=== PATIENT | female | born 1965 | race Caucasian/White ===

== ENCOUNTER 2017-07-31 10:41 | Emergency (ER) | payer BC ==
[2017-07-31 11:26] VITALS: BP 155/65
--- NOTE | 2017-07-31 12:04 | UC ---
Respiratory Complaint HPI - HPI Summary HPI Summary: Pt presents with 1m hx of dyspnea, non productive cough, and some SOB. She denies any medical history, but did start smoking again recently. She has been taking OTC dayquill/nyquill with mild relief. She does not take any medications. She does get a headache periodically, but associates this with increased coughing. Feels feverish and gets hot flashes from time to time. Denies chest pain, N/V/D/C, or recent travel. - History of Current Complaint Hx Obtained From: Patient ?: No Onset/Duration: Gradual Onset Severity Initially: Mild Severity Currently: Moderate - Risk Factors Pulmonary Embolism Risk Factors: Smoking <Nemesio Sosa - Last Filed: 07/31/17 15:16> <Saray Cano - Last Filed: 07/31/17 19:07> - History of Current Complaint Chief Complaint: UCRespiratory Stated Complaint: URI Time Seen by Provider: 07/31/17 12:04 - Allergies/Home Medications Allergies/Adverse Reactions: Allergies Allergy/AdvReac Type Severity Reaction Status Date / Time No Known Allergies Allergy Verified 09/16/16 16:14 PMH/Surg Hx/FS Hx/Imm Hx Previously Healthy: Yes - Surgical History Surgical History: Yes Surgery Procedure, Year, and Place: BILAT STEPENECTOMY. LT SIDE=1 YR AGO RT SIDE 3 TRS AGO - Family History Known Family History: Positive: None - Social History Occupation: Employed Full-time Lives: With Family Alcohol Use: Weekly Alcohol Amount: 2-3 drinks/ week Substance Use Type: None Smoking Status (MU): Current Some Day Smoker Type: Cigarettes Length of Time of Smoking/Using Tobacco: 15-20 years Have You Smoked in the Last Year: Yes Cessation Counseling: Counseled 3+Min - 10 Min <Nemesio Sosa - Last Filed: 07/31/17 15:16> Review of Systems Constitutional: Fever Skin: Negative Eyes: Negative ENT: Negative Respiratory: Shortness Of Breath, Cough Cardiovascular: Negative Gastrointestinal: Negative Neurovascular: Negative Neurological: Negative Psychological: Negative All Other Systems Reviewed And Are Negative: Yes <Nemesio Sosa - Last Filed: 07/31/17 15:16> Physical Exam Triage Information Reviewed: Yes Appearance: Well-Appearing, Well-Nourished Vital Signs: Initial Vital Signs Temp 98.3 F 07/31/17 11:19 Pulse 70 07/31/17 11:19 Resp 18 07/31/17 11:19 BP 155/65 07/31/17 11:19 Pulse Ox 99 07/31/17 11:19 Vital Signs Reviewed: Yes Eyes: Positive: Conjunctiva Clear ENT: Positive: Hearing grossly normal, Pharynx normal, TMs normal, Uvula midline. Negative: Pharyngeal erythema, Nasal congestion, Nasal drainage, TM bulging, TM dull, TM red, Tonsillar swelling, Tonsillar exudate, Sinus tenderness Neck: Positive: Supple, Nontender, No Lymphadenopathy Respiratory: Positive: Chest non-tender, No respiratory distress, No accessory muscle use, Decreased breath sounds - Throughout, Wheezing - throughout Cardiovascular: Positive: RRR, No Murmur, Pulses Normal Neurological: Positive: Alert Psychological: Positive: Age Appropriate Behavior Skin: Negative: rashes <Nemesio Sosa - Last Filed: 07/31/17 15:16> Vital Signs: Initial Vital Signs Temp 98.3 F 07/31/17 11:19 Pulse 70 07/31/17 11:19 Resp 18 07/31/17 11:19 BP 155/65 07/31/17 11:19 Pulse Ox 99 07/31/17 11:19 <Saray Cano - Last Filed: 07/31/17 19:07> Diagnostic Evaluation - Laboratory O2 Sat by Pulse Oximetry: 99 <Nemesio Sosa - Last Filed: 07/31/17 15:16> Respiratory Course/Dx - Course Course Of Treatment: EKG - ?left atrial enlargement. Negative for acute process. CXR - Hyperinflation cosistent with COPD. No acute disease. Rx for Z- jr and albuterol - pt says she will likely not use the inhaler as she hates taking medications and believes the z-jr is all she needs. Your blood pressure was high at today's visit - please see your PCP within 4 weeks for recheck and re-evaluation. - Differential Dx/Diagnosis Differential Diagnosis/HQI/PQRI: Asthma, Bronchitis, Lower Resp Infection, Pneumothorax, Pulmonary Embolism, Sinusitis Provider Diagnoses: copd exacerbation <Nemesio Sosa - Last Filed: 07/31/17 15:16> Discharge <Nemesio Sosa - Last Filed: 07/31/17 15:16> <Saray Cano - Last Filed: 07/31/17 19:07> - Discharge Plan Condition: Stable Disposition: HOME Prescriptions: Albuterol HFA INHALER* [Ventolin HFA Inhaler*] 1 - 2 puff INH Q6H PRN #1 mdi PRN Reason: Cough Azithromyxin JR (NF) [Z-Jr (Zithromax) 250 mg tabs #6] 2 tab PO .TODAY, THEN 1 DAILY #6 tab Fluconazole 100 MG TAB* [Diflucan 100 MG TAB*] 100 mg PO DAILY #1 tab Patient Education Materials: Acute Bronchitis (ED) Forms: *Work Release Referrals: [facility] [Outside] - As Soon As Possible Additional Instructions: 1) Z-jr take as directed 2) Albuterol inhaler 2 puffs every 6 hours as needed for shortness of breath or cough 3) Diflucan when/if vaginal yeast symptoms occur 4) If you develop new fever, SOB, chest pain, new or worsening symptoms - please call our office or go to ED. Your blood pressure was high at today's visit - please see your PCP within 4 weeks for recheck and re-evaluation. Attestation Statement User Type: Provider - I was available for consult. This patient was seen by the [facility]. The patient was not presented to, seen by, or examined by me. -Ben <Saray Cano - Last Filed: 07/31/17 19:07>
--- NOTE | 2017-07-31 12:40 | RAD ---
HISTORY: Shortness of breath COMPARISONS: May 19, 2009 VIEWS: 4: Frontal dual-energy and lateral views of the chest. FINDINGS: CARDIOMEDIASTINAL SILHOUETTE: The cardiomediastinal silhouette is normal. ANJUM: The anjum are normal. PLEURA: The costophrenic angles are sharp. No pleural abnormalities are noted. LUNG PARENCHYMA: There is hyperinflation with flattening of the diaphragm and expansion of the AP diameter of the chest. ABDOMEN: The upper abdomen is clear. There is no subphrenic gas. BONES AND SOFT TISSUES: No bone or soft tissue abnormalities are noted. OTHER: None. IMPRESSION: HYPERINFLATION, CONSISTENT WITH COPD. NO ACTIVE CARDIOPULMONARY DISEASE.
== END 2017-07-31 12:58 | disposition home or self-care (01) ==
LOC: UCEAST 10:41
DX: J44.1 Chronic obstructive pulmonary disease with (acute) exacerbation (principal); R94.31 Abnormal electrocardiogram [ECG] [EKG]; F17.210 Nicotine dependence, cigarettes, uncomplicated
CPT/HCPCS: 71020; 93005; 99212; G0463

== ENCOUNTER 2018-11-04 05:11 | Emergency (ER) | payer BC ==
[2018-11-04] MEDS ORDERED: HYDROcodone/ACETAMIN 5-325 MG* 1 TAB PO ONE (05:45)
--- NOTE | 2018-11-04 06:07 | ED ---
Upper Extremity Pain - HPI Summary HPI Summary: Patient is a 53-year-old female presenting to the ED with right shoulder pain after fall last evening. She states she slipped on the ice and fell directly onto her right shoulder. She endorses swelling to the right shoulder, denies any pain to the elbow. Denies any pain around the neck. Denies any head injury. Pain is currently rated an 8/10, constant and throbbing. Denies any numbness or tingling, color or temperature changes to the ipsilateral arm. - History of Current Complaint Chief Complaint: EDExtremityUpper Stated Complaint: RIGHT SHOULDER PAIN Time Seen by Provider: 11/04/18 05:26 Hx Obtained From: Patient Mechanism Of Injury: Blunt Trauma Onset/Duration: Started Hours Ago Timing: Constant Severity Initially: Mild Severity Currently: Mild Character: Aching Aggravating Factor(s): Nothing Alleviating Factor(s): Nothing Associated Signs & Symptoms: Positive: Swelling. Negative: Redness, Bruising, Weakness, Numbness/Tingling - Risk Factors Non-Orthopedic Risk Factor: Negative DVT Risk Factors: Negative Septic Arthritis Risk Factor: Negative Compartment Syndrome Risk Factors: Pain - Allergies/Home Medications Allergies/Adverse Reactions: Allergies Allergy/AdvReac Type Severity Reaction Status Date / Time No Known Allergies Allergy Verified 09/16/16 16:14 PMH/Surg Hx/FS Hx/Imm Hx Previously Healthy: Yes Respiratory History: Denies: Hx Asthma - Surgical History Surgery Procedure, Year, and Place: BILAT STEPENECTOMY. LT SIDE=1 YR AGO RT SIDE 3 TRS AGO Infectious Disease History: No Infectious Disease History: Reports: History Other Infectious Disease - lyme Denies: Hx Clostridium Difficile, Hx Hepatitis, Hx Human Immunodeficiency Virus (HIV), Hx of Known/Suspected MRSA, Hx Shingles, Hx Tuberculosis, Hx Known/ Suspected VRE, Hx Known/Suspected VRSA, Traveled Outside the [place] in Last 30 Days - Family History Known Family History: Positive: None - Social History Occupation: Employed Full-time Lives: With Family Alcohol Use: Weekly Alcohol Amount: 2-3 drinks/ week Hx Substance Use: No Substance Use Type: Reports: None Hx Tobacco Use: Yes Smoking Status (MU): Current Some Day Smoker Type: Cigarettes Length of Time of Smoking/Using Tobacco: 15-20 years Have You Smoked in the Last Year: Yes Review of Systems Constitutional: Negative Negative: Fever, Chills, Fatigue, Skin Diaphoresis Negative: Palpitations, Chest Pain Negative: Shortness Of Breath, Cough Genitourinary: Negative Positive: no symptoms reported, see HPI Positive: Arthralgia, Other - swelling to the right shoulder Skin: Negative Neurological: Negative All Other Systems Reviewed And Are Negative: Yes Physical Exam Triage Information Reviewed: Yes Vital Signs On Initial Exam: Initial Vitals Temp Pulse Resp BP Pulse Ox 98.2 F 66 20 149/87 98 11/04/18 05:12 11/04/18 05:12 11/04/18 05:12 11/04/18 05:12 11/04/18 05:12 Vital Signs Reviewed: Yes Appearance: Positive: Well-Appearing, Well-Nourished Skin: Positive: Warm, Skin Color Reflects Adequate Perfusion Head/Face: Positive: Normal Head/Face Inspection Eyes: Positive: EOMI, SEVEN, Conjunctiva Clear Neck: Positive: Supple, No Lymphadenopathy Respiratory/Lung Sounds: Positive: Clear to Auscultation, Breath Sounds Present Cardiovascular: Positive: RRR, Pulses are Symmetrical in both Upper and Lower Extremities Musculoskeletal: Positive: Pain @ - Right shoulder Neurological: Positive: Sensory/Motor Intact, Alert, Oriented to Person Place, Time, Speech Normal Psychiatric: Positive: Affect/Mood Appropriate AVPU Assessment: Alert Diagnostics - Vital Signs Vital Signs Temp Pulse Resp BP Pulse Ox 11/04/18 05:12 98.2 F 66 20 149/87 98 - Laboratory Lab Statement: Any lab studies that have been ordered have been reviewed, and results considered in the medical decision making process. Course/Dx - Course Course Of Treatment: Neurovascular exam intact. There is significant amount of swelling to the right shoulder without ecchymosis. X-ray obtained which shows a proximal humerus fracture. Sling applied. She is given hydrocodone and rx for pain management. Encouraged follow up with orthopedics early next week. Patient OK for discharge at this time. They want - Diagnoses Differential Diagnosis/HQI/PQRI: Positive: Fracture (Closed) Provider Diagnoses: Proximal humeral fracture Discharge - Sign-Out/Discharge Documenting (check all that apply): Patient Departure Patient Received Moderate/Deep Sedation with Procedure: No - Discharge Plan Condition: Stable Disposition: HOME Prescriptions: Ibuprofen 600 mg PO TID PRN #30 tablet MDD 3 PRN Reason: Pain oxyCODONE/Acetamin 10/325(NF) [Percocet 10/325 (NF)] 1 tab PO QID #16 tab MDD 4 Patient Education Materials: Arm Fracture in Adults (ED) Referrals: Haider Wolf MD [Medical Doctor] - Joann Gage MD [Medical Doctor] - Additional Instructions: Take 1 tab up to four times daily for pain Ibuprofen 600mg three times daily Please see Dr. Wolf in the office next week Call tomorrow morning to make an appt - Billing Disposition and Condition Condition: STABLE Disposition: Home
[2018-11-04 06:30] VITALS: BP 131/83
== END 2018-11-04 06:29 | disposition home or self-care (01) ==
LOC: ED 05:11
DX: S42.201A Unspecified fracture of upper end of right humerus, initial encounter for closed fracture (principal); W00.0XXA Fall on same level due to ice and snow, initial encounter; F17.210 Nicotine dependence, cigarettes, uncomplicated
CPT/HCPCS: 99282

== ENCOUNTER 2019-05-27 15:21 | Emergency (ER) | payer BC ==
[2019-05-27 15:39] VITALS: BP 129/77
--- NOTE | 2019-05-27 16:06 | UC ---
Throat Pain/Nasal Mychal HPI - HPI Summary HPI Summary: Patient is a 54yo female presenting with sinus pain and pressure since March. She states the pressure has been worsening over the past week. Notes bilateral maxillary sinus pressure. Notes right ear blockage and decreased hearing. Denies drainage from ear. Denies left ear symptoms. Notes congestion and post nasal drip. Denies sore throat and cough. She says she gets recurrent sinus and respiratory infections. Notes occasional wheezing. Denies nausea, vomiting, and diarrhea. Patient has tried nasal saline without relief. She notes having a stapenectomy performed in the right ear a couple years ago. - History of Current Complaint Chief Complaint: UCRespiratory Stated Complaint: SINUS COMPLAINT Time Seen by Provider: 05/27/19 15:39 Hx Obtained From: Patient Onset/Duration: Gradual Onset, Lasting Weeks Pain Intensity: 7 Pain Scale Used: 0-10 Numeric Associated Signs & Symptoms: Positive: Sinus Discomfort Related History: Seasonal Allergies - Allergies/Home Medications Allergies/Adverse Reactions: Allergies Allergy/AdvReac Type Severity Reaction Status Date / Time grass pollen Allergy Congestion Verified 05/27/19 15:33 Home Medications: Home Medications Ibuprofen 400 mg PO TID PRN MDD 3 05/27/19 [History] PMH/Surg Hx/FS Hx/Imm Hx - Surgical History Surgical History: Yes Surgery Procedure, Year, and Place: BILAT STEPENECTOMY. LT SIDE=1 YR AGO RT SIDE 3 TRS AGO - Family History Known Family History: Positive: None, Non-Contributory - Social History Alcohol Use: Daily Alcohol Amount: 2-3 drinks/ week Substance Use Type: None Substance Use Comment - Amount & Last Used: occasionally Smoking Status (MU): Former Smoker Type: Cigarettes Length of Time of Smoking/Using Tobacco: 15-20 years Have You Smoked in the Last Year: Yes Review of Systems All Other Systems Reviewed And Are Negative: No Constitutional: Positive: Fever, Fatigue. Negative: Chills Eyes: Positive: Other - intermittent watery eyes ENT: Positive: Ear Ache - right sided ear pressure and loss of hearing, Sinus Congestion, Sinus Pain/Tenderness Respiratory: Positive: Other - patient notes occasional wheezing Cardiovascular: Positive: Negative Gastrointestinal: Positive: Negative Genitourinary: Positive: Negative Physical Exam Triage Information Reviewed: Yes Appearance: Well-Appearing, No Pain Distress, Well-Nourished Vital Signs: Initial Vital Signs Temp 99.0 F 05/27/19 15:34 Pulse 81 05/27/19 15:34 Resp 18 05/27/19 15:34 BP 129/77 05/27/19 15:34 Pulse Ox 99 05/27/19 15:34 Vital Signs Reviewed: Yes Eyes: Positive: Conjunctiva Clear ENT: Positive: Pharynx normal, TMs normal - Right TM initially unable to be visualized until cerumen removed with curette. Scarring noted on the right TM from past procedures. TMs otherwise normal., Sinus tenderness - bilateral, Other. Negative: Pharyngeal erythema, Nasal drainage, TM bulging Neck: Positive: Supple, Nontender, No Lymphadenopathy Respiratory Exam: Normal Cardiovascular Exam: Normal Throat Pain/Nasal Course/Dx - Course Course Of Treatment: Patient instructed to take Augmentin as directed for treatment of sinusitis. Patient told she can continue nasal saline and OTC analgesics as directed. She requested prophylactic diflucan which she can take if a yeast infection occurs. She was instructed to follow up with her primary care physician if symptoms persist or worsen. Patient voiced understanding and agreed to treatment plan. - Differential Dx/Diagnosis Provider Diagnosis: Sinusitis Discharge ED - Sign-Out/Discharge Documenting (check all that apply): Patient Departure All imaging exams completed and their final reports reviewed: No Studies - Discharge Plan Condition: Stable Disposition: HOME Prescriptions: Amoxicillin/Clavulanate TAB* [Augmentin TAB 875*] 875 mg PO BID 7 Days #14 tab Fluconazole 150 MG TAB* [Diflucan 150 MG TAB*] 150 mg PO ONCE PRN #1 tablet PRN Reason: Itching Patient Education Materials: Sinusitis (ED) Referrals: [facility] [place] [facility] REFERRAL [Outside] Additional Instructions: Take Augmentin as directed for treatment of sinusitis. You may also continue use of nasal saline and OTC pain medications. Follow up with primary care physician if symptoms worsen or do not resolve. - Billing Disposition and Condition Condition: STABLE Disposition: Home
== END 2019-05-27 16:20 | disposition home or self-care (01) ==
LOC: UCEAST 15:21
DX: J32.9 Chronic sinusitis, unspecified (principal); Z87.891 Personal history of nicotine dependence
CPT/HCPCS: 99212; G0463

== ENCOUNTER 2019-10-01 13:08 | Emergency (ER) | payer BC ==
--- OUTSIDE RECORDS SUMMARY | 2019-10-01 13:17 | XMS REPORT | Continuity of Care Document ---
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 Problems Description No Information Available Social History Type Date Description Comments Sex Unknown Tobacco Use Start: Unknown Patient is a current smoker, smokes every day Smoking Status Reviewed: 08/29/19 Patient is a current smoker, smokes every day Allergies, Adverse Reactions, Alerts Description No Known Drug Allergies Medications Description No Active Medications Immunizations Description No Information Available Vital Signs Date Vital Result Comment 08/29/2019 4:08pm Height 61 inches 5'1" Weight 132.50 lb Heart Rate 66 /min BP Systolic 130 mmHg BP Diastolic 90 mmHg Respiratory Rate 14 /min Body Temperature 97.5 F Pain Level 1 BMI (Body Mass Index) 25.0 kg/m2 04/15/2019 1:10pm Height 62 inches 5'2" Weight 110.00 lb Heart Rate 78 /min BP Systolic 132 mmHg BP Diastolic 78 mmHg Respiratory Rate 12 /min Pain Level 0 BMI (Body Mass Index) 20.1 kg/m2 Results Description No Information Available Procedures Description No Information Available Medical Devices Description No Information Available Encounters Type Date Location Provider Dx Diagnosis Office Visit 04/15/2019 [facility] Haider Jade S42.221D 2-part disp fx 1:15p at Devin Wolf MD of [facility], 7thD Assessments Date Code Description Provider 08/29/2019 S42.221D 2-part displaced fracture of surgical neck Haider Wolf MD of right humerus, 04/15/2019 S42.221D 2-part displaced fracture of surgical neck Haider Wolf MD of right humerus, Plan of Treatment 08/29/2019 - Haider Wolf, MDS42.221D 2-part displaced fracture of surgical neck of right humerus,Follow up:Follow up: as needed Functional Status Description No Information Available Mental Status Description No Information Available Referrals Description No Information Available
[2019-10-01 13:22] VITALS: BP 159/96
--- NOTE | 2019-10-01 15:07 | UC ---
FLU HPI - HPI Summary HPI Summary: Bianka is a 48 yo female who presents to urgent care reporting what sounds like flulike symptoms starting last week. Patient states she had full body aches tactile temperatures nausea head congestion and a headache. Patient states she took [place] flu and some NyQuil but seem to help. Patient states she missed work Monday and again this week Monday. Patient states she starting to feel like she's getting better. Patient states she is just very tired without much appetite. Patient states she has not felt a fever in 24 hours. Patient with slight cough status improving. No nausea or vomiting. No rash. Patient state she has mild sinus congestion but that has also improved. Patient here to get a note for work as well as just to get her " wants checked. "Patient's medications is entered in the EMR by triage is reviewed this visit. 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 Patient did not flu vaccine this year. - History of Current Complaint Chief Complaint: UCRespiratory Stated Complaint: COUGH FEVER CHILLS Time Seen by Provider: 10/01/19 14:41 Hx Obtained From: Patient ?: No Onset/Duration: Gradual Onset Severity Currently: Moderate Severity Initially: Mild Pain Intensity: 4 Pain Scale Used: 0-10 Numeric - Allergy/Home Medications Allergies/Adverse Reactions: Allergies Allergy/AdvReac Type Severity Reaction Status Date / Time cucumber Allergy Intermediate Headache Verified 10/01/19 13:21 grass pollen Allergy Intermediate Congestion Verified 10/01/19 13:21 Perfume Allergy Intermediate Headache Verified 10/01/19 13:21 Home Medications: Home Medications NK [No Home Medications Reported] 10/01/19 [History Confirmed 10/01/19] PMH/Surg Hx/FS Hx/Imm Hx Previously Healthy: Yes - Surgical History Surgical History: Yes Surgery Procedure, Year, and Place: stapedectomy- STEPHEN 04/14/19 @[facility]- [place]-MR CONDITIONAL FOR 1.5T (PER DOCUMENT-W/O COMPLICATIONS). 08/17/15- LT STAPEDECTOMY-REMOVED PREV IMPLANT AND NEW IMPLANT-STAPES- [facility]- GYR[facility]- MR CONDITIONAL FOR 1.5T @ [facility] IN [place] - Family History Known Family History: Positive: Non-Contributory - Social History Occupation: Employed Full-time Lives: Alone Alcohol Use: Daily Alcohol Amount: 2-3 drinks/ week Substance Use Type: None Substance Use Comment - Amount & Last Used: occasionally Smoking Status (MU): Former Smoker Type: Cigarettes Length of Time of Smoking/Using Tobacco: 15-20 years Have You Smoked in the Last Year: Yes Review of Systems All Other Systems Reviewed And Are Negative: Yes Constitutional: Positive: Fever - resolved ENT: Positive: Sore Throat, Nasal Discharge, Sinus Congestion, Sinus Pain/ Tenderness, Other - sx all markedly improved Respiratory: Positive: Cough. Negative: Shortness Of Breath Cardiovascular: Positive: Negative Gastrointestinal: Positive: Negative Genitourinary: Positive: Negative Physical Exam - Summary Physical Exam Summary: Vital Signs Reviewed: Yes A+Ox3, no distress, mild congestion Eyes: Conjunctiva Clear, SEVEN. EOM intact and full ENT: Hearing grossly normal TM x 2 clear, turbinates inflammed and boggy, mild PND, mmoist, uvula midline, no exudate, no erythema Neck: Positive: Supple, no LA Respiratory: Positive: No respiratory distress, No accessory muscle use + CTA throughout no w/r, no cough Cardiovascular: RRR nl s1, s2 no m/r CBT <2 sec abd soft + BS nt/nd no guarding, no distension Musculoskeletal Exam: WONG x 4 without difficulty Strength Intact, ROM Intact Neurological: Positive: Alert, + sensation throughout Psychological: Positive: Normal Response To examiner Skin: Positive: no rash, no ecchymosis Triage Information Reviewed: Yes Vital Signs: Initial Vital Signs Temp 98.9 F 10/01/19 13:18 Pulse 98 10/01/19 13:18 Resp 12 10/01/19 13:18 BP 159/96 10/01/19 13:18 Pulse Ox 99 10/01/19 13:18 Flu Course/Dx - Course Course Of Treatment: Patient presents to urgent care for evaluation after what sounds like an influenza-like illness that started last Monday. Patient states strength for her she should feel better. Patient's miss work so she requested and overwork as well as just to be checked. On exam vital signs are stable. He does have some mild congestion postnasal drip but overall exam is not concerning. Discussed with patient secretion precaution. Continue symptom percussion. Hydration. Recommend decreased alcohol use. Plenty of rest. Humidifier. Follow up with PCP. Patient was given a note for return to work tomorrow depending how she feels. Patient comfortable and in agreement with plan Of note, pt's BP elevated -recommend f/u with PCP for recheck - Differential Dx/Diagnosis Provider Diagnosis: Viral syndrome Discharge ED - Sign-Out/Discharge Documenting (check all that apply): Patient Departure All imaging exams completed and their final reports reviewed: No Studies - Discharge Plan Condition: Stable Disposition: HOME Patient Education Materials: Viral Syndrome (ED) Forms: *Gen. Provider Communication, *Work Release Referrals: [facility] [place] [facility] REFERRAL [Outside] No Primary Care Phys,NOPCP [Primary Care Provider] - Additional Instructions: - Stay well hydrated. Drink plenty of non-alcoholic, non-caffinated beverages. - Alternate ibuprofen (Advil, Motrin) 600mg and Tylenol every 3 hours for pain or fever. Take with food. Do NOT take for more than 4-5 days. - These infections are spread by secretions - do NOT share eating or drinking utensils - clean items you share with other people such as cell phones, computer mouse, TV remote, computer tablets,etc. Once you start to feel better, change your pillow case and your toothbrush - get plenty of restful sleep - humidify the air in the room where you sleep - boil water, run a hot steam shower, vaporizer, cups of water by heat register - okay to take over the counter decongestant and cough medication - contact your doctor or return with questions or concerns - Billing Disposition and Condition Condition: STABLE Disposition: Home
== END 2019-10-01 15:19 | disposition home or self-care (01) ==
LOC: UCEAST 13:08
DX: B34.9 Viral infection, unspecified (principal); R11.0 Nausea; R03.0 Elevated blood-pressure reading, without diagnosis of hypertension; R09.89 Other specified symptoms and signs involving the circulatory and respiratory systems; Z91.018 Allergy to other foods; Z91.09 Other allergy status, other than to drugs and biological substances; Z87.891 Personal history of nicotine dependence
CPT/HCPCS: 99211; G0463